=== PATIENT | male | born 1955 | race Caucasian/White ===

== ENCOUNTER 2025-02-06 06:19 | Day surgery (SDC) | payer OTHER, SELFPAY | END 2025-02-06 14:59 | disposition home or self-care (01) | LOC: GI 06:19 | PROVIDERS: ATTENDING PHYSICIAN Internal Medicine | DX: Z12.11 Encounter for screening for malignant neoplasm of colon (principal); K57.30 Diverticulosis of large intestine without perforation or abscess without bleeding | CPT/HCPCS: G0121 ==

== ENCOUNTER → 2025-03-24 11:24 | Outpatient (REF) | payer OTHER, SELFPAY | LOC: MRI 3T 11:24 | PROVIDERS: ATTENDING PHYSICIAN Pain Medicine Interventional Pain Medicine | DX: M54.16 Radiculopathy, lumbar region (principal) | CPT/HCPCS: 72148 ==